=== PATIENT | female | born 1995 | race Caucasian/White ===

== ENCOUNTER 2016-12-29 16:52 | Emergency (ER) | payer BC ==
--- NOTE | 2016-12-29 16:59 | ED Physician Documentation ---
General Adult - HISTORIAN Historian: patient - HPI Stated Complaint: low bp reading Chief Complaint: General Adult Onset: minutes Timing: better Severity: moderate Further Comments: yes (Pt is a 21 yo female with a long hx of episodes of tachycardia and lightheadedness, and has been evaluated for SVT, WPW syndrome, and is to see cardiology for electrophysiology studies. Pt states she has worn Holter monitor, had thyroid eval, and seen a number of practioners for this problem since age 12. Today, again, pt felt her heart was racing and she felt dizzy, with vertigo and lightheadedness. Pt has not had cough, chest pain , n/v, or uti sx.) - ROS CONST: weakness, other (lightheadedness/vertigo) EYES/ENT: none CVS/RESP: other (tachycardia) GI/: none MS/SKIN/LYMPH: none - PAST HX Past History: other (Depression, HTN) Surgeries/Procedures: other (T&A, Cholecystectomy, Tonsillectomy) Allergies/Adverse Reactions: Allergies Allergy/AdvReac Type Severity Reaction Status Date / Time iodine Allergy Verified 12/29/16 17:22 Home Medications: Ambulatory Orders Medication Instructions Recorded Diltiazem HCl [Cardizem] 30 mg PO QID PRN 12/29/16 Escitalopram Oxalate [Lexapro] 40 mg PO DAILY 12/29/16 Norgestimate-Ethinyl Estradiol 1 tab PO DAILY 12/29/16 [Trinessa Tablet] Propranolol HCl [Inderal] 20 mg PO QD 12/29/16 - SOCIAL HX Smoking History: non-smoker - FAMILY HX Family History: No - REVIEWED ASSESSMENTS Nursing Assessment Reviewed: Yes Vitals Reviewed: Yes Progress - Progress Progress: NS 1 L IVF Pt states she is "a little better" after IVF. labs and EKG wnl Pt will follow up with clinical data programmer for electrophysiology studies. - EKG/XRAY/CT EKG: NSR (HR= 83; normal EKG) General Adult Physical Exam - PHYSICAL EXAM GENERAL APPEARANCE: mild distress EENT: pharynx normal NECK: normal inspection, thyroid normal, supple RESPIRATORY: no resp distress, chest non-tender, breath sounds normal CVS: reg rate & rhythm, heart sounds normal ABDOMEN: soft, no organomegaly, normal bowel sounds BACK: normal inspection, no CVA tenderness SKIN: warm/dry, normal color EXTREMITIES: non-tender, normal range of motion, no evidence of injury NEURO: oriented X3, motor nml, sensation nml Discharge Clincal Impression: lightheadedness, ? POTS syndrome Referrals: Primary Doctor,No [REFERRING] - Home Medications: Ambulatory Orders Diltiazem HCl [Cardizem] 30 mg PO QID PRN 12/29/16 Escitalopram Oxalate [Lexapro] 40 mg PO DAILY 12/29/16 Norgestimate-Ethinyl Estradiol [Trinessa Tablet] 1 tab PO DAILY 12/29/16 Propranolol HCl [Inderal] 20 mg PO QD 12/29/16 Condition: Stable Disposition: 01 HOME, SELF-CARE Decision to Admit: NO Decision Time: 18:26
[2016-12-29] MEDS: 0.9 % SODIUM CHLORIDE 1,000 ML IV ONE (17:21)
[2016-12-29 17:24] LABS: EOSINOPHILS % 2.6 % (0.0-6.8); MEAN CORPUSCULAR VOLUME 86.7 fl (80.0-100.0); MONOCYTES % 4.8 % (0.0-11.0); NEUTROPHILS # 2.7 # k/uL (1.4-7.7)
[2016-12-29 17:41] LABS: eGFR (African) > 60; eGFR (Non-African) > 60
[2016-12-29 18:39] VITALS: BP 117/83
[2016-12-30 05:54] LABS: APPEARANCE,URINE CLEAR (CLEAR); COLOR,URINE YELLOW (YELLOW); OCCULT BLOOD,URINE NEGATIVE (NEGATIVE); UROBILINOGEN URINE 0.2 Eu (0.2-1.0)
== END 2016-12-29 18:36 | disposition home or self-care (01) ==
LOC: ED 16:52
DX: R42 Dizziness and giddiness (principal)
CPT/HCPCS: 80053; 81002; 85025; 93005; J7030; 96360; 99283; S1016